=== PATIENT | male | born 1975 | race Caucasian/White ===

== ENCOUNTER 2017-03-26 17:23 | Observation (INO) | payer OTHER ==
[~2017-03-26 17:23] MED LIST: ISOVUE-370 76%-LOCM 1 ML ONE
[2017-03-26 18:26] LABS: #Eosinphils 0.3 thou/uL (0.0-0.7); #Lymphocytes 2.6 thou/uL (1.20-3.40); #Monocytes 0.5 thou/uL (0.11-0.59); #Neutrophils 4.2 thou/uL (1.40-6.50); %Basophils 0.6 % (0.0-1.0); %Eosinophils 4.6 % (0.0-10.0); %Monocytes 6.7 % (0.0-10.0); Hematocrit 49.8 % (42.0-52.0); Mean Platelet Volume 7.9 fL (7.4-10.4); Red Blood Cell (RBC) Count 5.78 mill/uL (4.70-6.10); White Blood Cell (WBC) Count 7.7 thou/uL (4.8-10.8)
[2017-03-26 18:29] LABS: Lactic Acid - Sepsis 0.7 mmol/L (0.5-2.2)
[2017-03-26 18:33] LABS: ALT (SGPT) 29 U/L (8-55); AST (SGOT) 23 U/L (5-34); Alkaline Phosphatase 68 U/L (40-150); Anion Gap 13 mmol/L (10-20); BUN (Urea Nitrogen) 14 mg/dL (8.9-20.6); Bilirubin, Total 0.6 mg/dL (0.2-1.2); Calc. Creatinine Clearance 0 mL/min (70-130); Calcium 9.8 mg/dL (7.8-10.44); Carbon Dioxide 28 mmol/L (22-29); Chloride 102 mmol/L (98-107); Estimated GFR-MDRD Greater than 90; Globulin 3.1 g/dL (2.4-3.5); Lipase 50 U/L (8-78); PTT 28.4 SEC (22.9-36.1); Protein, Total 7.7 g/dL (6.0-8.3); Prothrombin Time 13.1 SEC (12.0-14.7)
[2017-03-26] MEDS ORDERED: Lorazepam 2 MG/ML VIAL ONE (18:39)
--- NOTE | 2017-03-26 20:39 | RAD ---
SINGLE VIEW OF THE CHEST: 03/26/17 COMPARISON: None. HISTORY: Abdominal pain. Preoperative radiograph. FINDINGS: Single view of the chest shows a normal sized cardiomediastinal silhouette. There is no evidence of consolidation, mass, or pleural effusion. The bones are unremarkable. IMPRESSION: No evidence of acute cardiopulmonary disease. POS: [facility]
--- NOTE | 2017-03-26 21:30 | CT ---
CT ABDOMEN AND PELVIS WITH CONTRAST: 03/26/17 COMPARISON: None. HISTORY: Abdominal pain. Patient has umbilical hernia that was discovered one week ago. TECHNIQUE: Multiple contiguous axial images were obtained in a CT of the abdomen and pelvis with contrast. [place] nal reformats were performed. FINDINGS: The liver, gallbladder, kidneys, adrenal glands, spleen, and pancreas are unremarkable. No free air, free fluid, or stranding changes are seen within the peritoneal cavity. The large and small bowel are unremarkable. The appendix is unremarkable. No abdominal or pelvic lym phadenopathy are seen. The patient has a 2.1 cm fat containing umbilical hernia. There is stranding change within the fat i n the hernia and this likely represents incarceration and possibly strangulation of the fat within t he hernia. No bowel loops are seen extending into the hernia. The osseous structures and visualized inferior thorax are unremarkable. IMPRESSION: Umbilical hernia containing fat. POS: [facility]
[2017-03-26] MEDS ORDERED: Ondansetron ODT 4 MG TAB SL PRN (22:53)
[2017-03-26] MEDS ORDERED: Ondansetron HCl/PF 4 MG/2 ML Vial IVP PRN (22:53)
[2017-03-26 23:02] VITALS: BMI 32.9
[2017-03-26] MEDS: D5 1/2 NS w/20 mEq KCL 1,000 ML IV SCH (23:23)
--- NOTE | 2017-03-27 07:19 | HP ---
CHIEF COMPLAINT: Umbilical pain and swelling. HISTORY: This is a 41-year-old male who reports about a 10 day history of umbilical pain and mass. He became very nauseated. He has had some vomiting, he has been passing flatus came to the emergen cy room. CT scan showed incarcerated fat, but no bowel. PAST MEDICAL HISTORY: Otherwise, healthy. PAST SURGICAL HISTORY: Carpal tunnel release. MEDICATIONS: Multivitamins. ALLERGIES: No known drug allergies. FAMILY HISTORY: Father is alive in good health. Mother of skin cancer. SOCIAL HISTORY: He is . No tobacco or alcohol. PHYSICAL EXAMINATION: VITAL SIGNS: Height 5 feet 10 inches, weight 223, body mass index 32. Blood pressure is 112/73, p ulse 81. GENERAL: Well-developed, well-nourished male in no apparent distress. HEENT: Unremarkable. LUNGS: Clear. HEART: Regular rate and rhythm. ABDOMEN: Soft. He has a 2 cm umbilical hernia which is partially reducible and tender. EXTREMITIES: Good pulses. No pedal edema. ASSESSMENT: Incarcerated umbilical hernia. PLAN: Open umbilical hernia repair with possible mesh. CONSENT: I have discussed the planned procedure as well as risk of bleeding, infection, injury to b owel, recurrence of hernia. He understands and gives informed consent.
[2017-03-27] MEDS ORDERED: Bupivacaine HCl 0.5%/Epinephrine 1:200,000/PF 30 ml Vial ONE (09:10)
[2017-03-27] MEDS ORDERED: Midazolam HCl 2 mg/2 ml Vial ONE ×2 (09:26)
[2017-03-27] MEDS ORDERED: Fentanyl 100 MCG/2 ML VIAL ONE (09:26)
[2017-03-27] MEDS ORDERED: Ketorolac Tromethamine 30 MG/ML VIAL ONE (09:44)
[2017-03-27] MEDS ORDERED: Ondansetron HCl/PF 4 MG/2 ML Vial ONE (09:44)
[2017-03-27] MEDS ORDERED: Propofol 200 MG/20 ML VIAL ONE (09:44)
[2017-03-27] MEDS ORDERED: Glycopyrrolate 0.2 MG/ML 5 ML SYRINGE ONE (09:44)
[2017-03-27] MEDS ORDERED: Dexamethasone 20 MG/5 ML VIAL ONE (09:44)
[2017-03-27] MEDS ORDERED: Lidocaine 1% PF 5 ML VIAL ONE (09:44)
[2017-03-27] MEDS ORDERED: Ondansetron HCl/PF 4 MG/2 ML Vial IVP PRN ×2 (10:16→10:32)
[2017-03-27] MEDS ORDERED: Promethazine HCl 25 MG/ML VIAL IM PRN ×2 (10:16→10:32)
[2017-03-27] MEDS ORDERED: HYDROmorphone 2 MG/ML VIAL SLOW IVP PRN (10:16)
[2017-03-27] MEDS ORDERED: Promethazine HCl 25 MG/ML VIAL SLOW IVP PRN (10:16)
[2017-03-27] MEDS ORDERED: HYDROcodone/Acetaminophen 10/325 mg Tablet PO PRN ×2 (10:32)
[2017-03-27] MEDS ORDERED: Dextrose 5% in Water 1,000 ML IV PRN (10:32)
[2017-03-27] MEDS ORDERED: Dextrose 50% Abboject 50 ML SYRINGE SLOW IVP PRN (10:32)
[2017-03-27] MEDS ORDERED: D5 1/2 NS w/20 mEq KCL 1,000 ML IV SCH (10:45)
[2017-03-27] MEDS: D5 1/2 NS w/20 mEq KCL 1,000 ML IV SCH (10:46)
--- NOTE | 2017-03-27 11:50 | OP ---
PREOPERATIVE DIAGNOSIS: Incarcerated umbilical hernia. SURGEON: Praveen James M.D. PROCEDURE: Umbilical hernia repair with mesh and excision of necrotic omentum. INDICATIONS: This is a 41-year-old male with a 1-week history of painful umbilical hernia and was f ound to have incarcerated umbilical hernia that was not able to be reduced. FINDINGS: About a 1.5 cm defect, 6.4 cm piece of mesh was used. There was some necrotic omentum wi thin it. PROCEDURE IN DETAIL: After informed consent was obtained, the patient was taken to the operating ro om and given general endotracheal anesthesia, placed in the supine position. The abdomen was preppe d and draped in the usual fashion. Local anesthesia was infiltrated subcutaneously and deep. A sup raumbilical incision was performed. The subcu divided sharply. The hernia sac was dissected circum ferentially from the skin all the way down to the fascia. Hernia sac was opened and there was some purple fat within there that was excised, it is necrotic, sent to pathology for further analysis. H emostasis was achieved. The hernia was reduced. Reduction maintained utilizing medium size Proceed mesh patch 6.4 cm. This was placed intraabdominally, pulled up, sutured to the abdominal wall with interrupted 0 Ethibond suture. Then, hemostasis achieved with electrocautery. Skin was sutured to the abdominal wall with interrupted 3-0 Vicryl suture to restore normal umbilical contour, and the skin closed with interrupted 4-0 Rapide. Steri-Strips applied. Sterile bandage applied. The patie nt tolerated the procedure well and transferred to recovery in good condition. Sponge and needle co unt verified correct x2.
[2017-03-27] MEDS ORDERED: Ketorolac Tromethamine 30 MG/ML VIAL IVP SCH (12:00)
[2017-03-27 13:30] VITALS: TEMP 97.4
[2017-03-27 16:28] VITALS: BP 115/67
[2017-03-27] MEDS ORDERED: Famotidine 20 MG TAB PO SCH (21:00)
[2017-03-27] MEDS ORDERED: Famotidine/PF 20 mg/2ml Vial SLOW IVP SCH (21:00)
--- NOTE | 2017-03-27 23:16 | DIS ---
DISCHARGE DIAGNOSIS: Incarcerated umbilical hernia. SURGEON: Dr. James. PROCEDURE PERFORMED: Umbilical hernia repair with mesh. HOSPITAL COURSE: The patient was admitted, taken to the operating room where he underwent a repair of incarcerated umbilical hernia. Postoperatively, he has done well. Pain is minimal. He is hailey ating diet. He is discharged home on hydrocodone, Zofran, and Colace. He will follow up with me in 2 weeks.
[2017-03-28] MEDS ORDERED: Enoxaparin Sodium 40 MG/0.4 ML SYRINGE SC SCH (09:00)
== END 2017-03-27 16:20 | disposition home or self-care (01) ==
LOC: ERS 17:23 → SURG A 22:46
PROVIDERS: ADMIT Surgery; ATTEND Surgery
PROC: 0WUF0JZ Supplement Abdominal Wall with Synthetic Substitute, Open Approach (ICD-10-PCS; principal; 2017-03-27)
DX: K42.0 Umbilical hernia with obstruction, without gangrene (principal); Z79.899 Other long term (current) drug therapy; Z98.890 Other specified postprocedural states; Z80.8 Family history of malignant neoplasm of other organs or systems
CPT/HCPCS: 36415; 71010; 74177; 80053; 83605; 83690; 85025; 85610; 85730; 86850; 86900; 86901; 88302; 93005; 96361; 96374; 96375; 96376; G0378; J0131; J0670; J0694; J1100; J1170; J1885; J2001; J2060; J2250; J2270; J2405; J2704; J3010; J7050

== ENCOUNTER 2022-11-14 12:32 | Outpatient (CLI) | payer OTHER | END 2022-11-14 12:33 | disposition home or self-care (01) | LOC: TBSIIMAG 12:32 | PROVIDERS: ATTEND Neurological Surgery | DX: M50.122 Cervical disc disorder at C5-C6 level with radiculopathy (principal); M50.123 Cervical disc disorder at C6-C7 level with radiculopathy | CPT/HCPCS: 72141 ==

== ENCOUNTER 2023-02-12 10:58 | Outpatient (CLI) | payer OTHER | END 2023-02-12 10:59 | disposition home or self-care (01) | LOC: SCSRAD 10:58 | PROVIDERS: ATTEND Neurological Surgery | DX: M54.12 Radiculopathy, cervical region (principal); Z98.1 Arthrodesis status | CPT/HCPCS: 72040 ==

== ENCOUNTER 2023-05-27 10:40 | Outpatient (CLI) | payer OTHER | END 2023-05-27 10:41 | disposition home or self-care (01) | LOC: SCSRAD 10:40 | PROVIDERS: ATTEND Neurological Surgery | DX: M54.12 Radiculopathy, cervical region (principal) | CPT/HCPCS: 72040 ==